=== PATIENT | female | born 1980 | race African-American/Black ===

== ENCOUNTER 2022-09-05 01:09 | Emergency (ER) | payer BC ==
[~2022-09-05] VITALS: Ht 170.2 cm; Wt 74.8 kg
[2022-09-05 01:25] VITALS: BP 98/70
== END 2022-09-05 04:00 | disposition left against medical advice (07) ==
LOC: ER 01:09
DX: Z53.21 Procedure and treatment not carried out due to patient leaving prior to being seen by health care provider (principal)
CPT/HCPCS: 99281